=== PATIENT | male | born 1955 | race Caucasian/White ===

== ENCOUNTER 2021-06-21 13:11 | Inpatient (IN) ==
[2021-06-21] MEDS ORDERED: CeFAZolin Syr 2,000MG/20 ML 2,000 MG/20 ML SYRINGE IVPB ONE (13:48)
[2021-06-21] MEDS ORDERED: Ringers Solution, Lactated 1,000 ML IVC SCH ×2 (14:00→14:30)
[2021-06-21] MEDS ORDERED: *HR* FentaNYL (PF) 100 MCG/2 ML VIAL IVP PRN (14:16)
[2021-06-21] MEDS ORDERED: Lidocaine HCL 4 ML Topical Solution (Laryng-O-Jet Kit Sterile Pak) TP ONE (14:16)
[2021-06-21] MEDS ORDERED: Lidocaine -MPF 2% 2 ML VIAL ONE (14:16)
[2021-06-21] MEDS ORDERED: *HR* OxyCODONE Immed Rel 5 MG TABLET PO PRN ×2 (14:16→21:02)
[2021-06-21] MEDS ORDERED: Ondansetron 4 MG/2 ML VIAL IVP PRN ×2 (14:16→21:02)
[2021-06-21] MEDS ORDERED: *HR* Propofol 200 MG/20 ML VIAL IVP ONE (14:16)
[2021-06-21] MEDS ORDERED: *HR* FentaNYL (PF) 100 MCG/2 ML VIAL ONE (14:45)
[2021-06-21] MEDS ORDERED: *HR* Heparin 5,000 UNIT/ML VIAL ONE ×2 (14:47→18:35)
[2021-06-21] MEDS ORDERED: *HR* Remifentanil 2 MG VIAL IVP ONE (14:48)
[2021-06-21] MEDS ORDERED: ceFAZolin 1,000 MG, Sodium Chloride IRRigation 1,000 ML IR ONE (15:00)
[2021-06-21] MEDS ORDERED: *HR* Rocuronium Bromide 50 MG/5 ML VIAL ONE (15:10)
[2021-06-21] MEDS ORDERED: Protamine Sulfate 50 MG/5 ML VIAL IVP ONE (15:42)
[2021-06-21] MEDS ORDERED: Heparin 1,000 UNITS/500 mL 500 ML ONE ×2 (15:43→15:56)
[2021-06-21] MEDS ORDERED: *HR* Vasopressin 20 UNIT/ML VIAL ONE (17:10)
[2021-06-21] MEDS ORDERED: *HR* Phenylephrine 10 MG/ML VIAL ONE (17:18)
[2021-06-21] MEDS ORDERED: *HR* Labetalol 20 MG/4 ML SYRINGE IVP ONE (17:45)
[2021-06-21] MEDS ORDERED: Sugammadex Sodium 200 MG/2 ML VIAL IV ONE (19:24)
[2021-06-21 20:05] VITALS: O2SAT 100
[2021-06-21] MEDS ORDERED: QUEtiapine Fumarate 100 MG TABLET PO SCH (21:02)
[2021-06-21] MEDS ORDERED: *HR* LORazepam 1 MG TABLET PO PRN (21:02)
[2021-06-21] MEDS ORDERED: Naloxone 0.4 MG/ML INJ IVP PRN (21:02)
[2021-06-21] MEDS ORDERED: *HR* Labetalol 20 MG/4 ML SYRINGE IVP PRN (21:02)
[2021-06-21] MEDS ORDERED: Acetaminophen 325 MG TABLET PO PRN (21:02)
[2021-06-21] MEDS ORDERED: Acetaminophen IV 1,000 MG/100 ML BAG IVPB ONE (21:18)
[2021-06-21] MEDS: Gabapentin 400 MG CAPSULE PO SCH (21:40)
[2021-06-21] MEDS: Baclofen 10 MG TABLET PO SCH (21:40)
[2021-06-21] MEDS: cloNIDine HCL 0.1 MG TABLET PO SCH (21:40)
[2021-06-22] MEDS: *HR* HYDROcodone/Acet 5/325 mg TABLET PO PRN ×3 (01:38→16:44)
[2021-06-22] MEDS: CeFAZolin 2 GM/120 ML BAG IVPB SCH ×3 (01:40→16:33)
[2021-06-22 02:44] LABS: Basophils % 0.3 %; Eosinophils % 0.1 %; Hematocrit 35.6 % (37.5-50.1); Hemoglobin 11.6 g/dL (12.9-16.9); Immature Granulocytes % 0.4 % (0-4); Immature Platelets 4.8 % (1.1-6.1); Lymphocytes # 0.7 K/mcL (0.6-4.6); Lymphocytes % 9.6 %; Mean Corpuscular HGB Conc 32.6 g/dL (31.6-35.5); Mean Corpuscular Hemoglobin 28.9 pg (28.0-33.3); Mean Corpuscular Volume 88.8 fL (83.0-100.0); Mean Platelet Volume 10.9 fL (9.4-12.4); Monocytes # 0.2 K/mcL (0.0-1.3); Monocytes % 1.9 %; Neutrophils # 6.8 K/mcL (1.6-8.9); Red Blood Count 4.01 M/mcL (4.19-5.50); Red Cell Distribution Width 11.4 % (11.5-14.5); Segmented Neutrophils % 87.7 %; White Blood Count 7.7 K/mcL (4.3-11.1)
[2021-06-22 02:51] LABS: Platelet Count 87 K/mcL (140-400)
[2021-06-22 03:08] LABS: BUN/Creatinine Ratio 24 (6-26); Blood Urea Nitrogen 32 mg/dL (8-23); Calcium 8.6 mg/dL (8.6-10.3); Carbon Dioxide 19 mEq/L (23-29); Chloride 106 mEq/L (98-107); Glucose 127 mg/dL (70-105); Osmolality,Calculated 284 (280-300); Potassium 5.5 mEq/L (3.5-5.1); Sodium 133 mEq/L (136-145); eGFR For African Americans > 60 (> 60); eGFR For Non-African Americans 54 (> 60)
[2021-06-22] MEDS ORDERED: Finasteride 5 MG TABLET PO SCH (09:00)
[2021-06-22] MEDS ORDERED: amLODIPine 5 MG TABLET PO SCH (09:00)
[2021-06-22] MEDS ORDERED: Ondansetron ODT 4 MG TAB.RAPDIS PO SCH (09:00)
[2021-06-22] MEDS ORDERED: Vortioxetine Hydrobromide [Trintellix] 20 MG PO SCH (09:00)
[2021-06-22] MEDS: cloNIDine HCL 0.1 MG TABLET PO SCH (09:27)
[2021-06-22] MEDS: Baclofen 10 MG TABLET PO SCH ×2 (09:27→14:34)
[2021-06-22] MEDS: Gabapentin 400 MG CAPSULE PO SCH ×2 (09:27→14:34)
[2021-06-22 16:12] VITALS: BP 97/56; PULSE 57; TEMP 99
== END 2021-06-22 19:30 | disposition home or self-care (01) | DRG 39 ==
LOC: SAMDAY 13:11 → 2NNU 15:41
PROVIDERS: ADMIT Surgery Vascular Surgery; ATTEND Surgery Vascular Surgery